=== PATIENT | female | born 1955 | race Hispanic/Latino ===

== ENCOUNTER → 2022-06-30 | Day surgery (SDC) | payer MEDICARE, OTHER ==
[2022-06-27 12:18] LABS: BASOPHILS % 0.5 % (0.0-1.0); EOSINOPHILS # (AUTO) 0.1 (0.0-0.4); EOSINOPHILS % 2.2 % (0.0-6.0); HEMATOCRIT 33.6 % (34.2-44.1); LYMPHOCYTES # (AUTO) 2.1 (1.0-3.2); LYMPHOCYTES % 37.8 % (18.0-39.1); MEAN CORPUSCULAR HGB CONC 29.8 g/dL (31-35); MEAN CORPUSCULAR VOLUME 90.8 fL (81-99); MONOCYTES # (AUTO) 0.4 (0.2-0.8); NEUTROPHILS # (AUTO) 2.8 (2.1-6.9); PLATELET COUNT 209 x10e3/uL (140-360); RED CELL DISTRIBUTION WIDTH 13.7 % (11.7-14.4)
[~2022-06-30] MED LIST: ASPIRIN EC81 MG PO; ATORVASTATIN CA20 MG PO; EUTHYROX50 MCG PO; FENTANYL CITRATE/PF 100MCG/2 ML INJ ONE; FERROUS SULFAT325 MG PO; GLIMEPIRIDE2 MG PO; GLUCAGON FOR INJ 1 MG VIAL ONE; GLYCOPYRROLATE INJ 0.2 MG/ML VIAL ONE; HUMALOG MI100 UNIT/2 SQ; HYDRALAZINE HCL25 MG PO; ISORDIL40 MG PO; LACTATED RINGER'S 1,000 ML ONE; LEVEMIR FL100 UNIT/1 SC; LORATADINE10 MG PO; METFORMIN HCL500 MG PO; METOPROLOL SUCC50 MG PO; OMEGA 3 1,0001 EACH PO; OMEPRAZOLE40 MG PO; POVIDONE IODINE 0.05% 0.05 % ML PO ONE; PROPOFOL IV EMULSION 10 MG/ML 20 ML VIAL ONE; VASOTEC5 MG PO
[2022-06-30 10:15] VITALS: BP 150/89
== END | disposition home or self-care (01) ==
LOC: OR 07:28
PROVIDERS: ATTEND Internal Medicine Gastroenterology
DX: D64.89 Other specified anemias (principal); Z86.010 Personal history of colon polyps; K29.60 Other gastritis without bleeding; K20.90 Esophagitis, unspecified without bleeding; K22.89 Other specified disease of esophagus; K57.30 Diverticulosis of large intestine without perforation or abscess without bleeding; K52.9 Noninfective gastroenteritis and colitis, unspecified; K21.9 Gastro-esophageal reflux disease without esophagitis; K62.89 Other specified diseases of anus and rectum; K64.8 Other hemorrhoids; Z71.3 Dietary counseling and surveillance; I10 Essential (primary) hypertension; Z71.89 Other specified counseling; E11.9 Type 2 diabetes mellitus without complications; E78.5 Hyperlipidemia, unspecified; E03.9 Hypothyroidism, unspecified; H40.9 Unspecified glaucoma; Z01.812 Encounter for preprocedural laboratory examination; Z79.84 Long term (current) use of oral hypoglycemic drugs; Z79.4 Long term (current) use of insulin; Z79.899 Other long term (current) drug therapy; Z68.30 Body mass index [BMI] 30.0-30.9, adult
CPT/HCPCS: 36415 ×2; 43239; 45380; 82948; 83630; 83993; 85025; 87045; 87177; 87324; 87328; 87449; C9113; J1610; J2704; J7121; 45378